=== PATIENT | male | born 1990 | race Caucasian/White ===

== ENCOUNTER 2018-10-02 09:36 | Emergency (ER) | payer OTHER ==
--- NOTE | 2018-10-02 10:43 | EDPHY ---
H & P Stated Complaint: back pain x3 yrs & anxiety Time Seen by Provider: 10/02/18 10:21 HPI/ROS: CHIEF COMPLAINT: Thoracic back pain x3 years "I want to make sure I don't have lung cancer" HISTORY OF PRESENT ILLNESS: 28-year-old male generally healthy, in the ER via private vehicle complaining of 3 years of left thoracic paraspinous pain approximately T4 level. Pain alleviated with direct pressure. He has been seen by a chiropractor with ambulation due to thoracic without manipulation to his cervical spine. He is concerned he may have lung cancer. He spoke with his uncle who was oncologist recommend he go to the ER to get an MRI of his chest. The patient has been seen by his primary care provider and is followed by at a chiropractor as well. He denies acute symptomatology. Does state that he had an 8 lb weight loss in 1 week without nausea or vomiting. PRIMARY CARE PROVIDER: REVIEW OF SYSTEMS: 10 systems reviewed and negative with the exception of the elements mentioned in the history of present illness PAST MEDICAL & SURGICAL HISTORY: No pertinent medical or surgical history SOCIAL HISTORY: Nonsmoker FAMILY HISTORY: no family history of long or other cancer PHYSICAL EXAM (Prior to examination, patient consented to physical exam, hands were washed and my usual and customary physical exam procedures followed) 1) GENERAL: Well-developed, well-nourished, alert and oriented. Appears to be in no acute distress. 2) HEAD: Normocephalic, atraumatic 3) HEENT: Pupils equal, round, reactive to light bilaterally. Sclera anicteric. Nasopharynx, oropharynx, clear, no lesions. Moist mucous membranes. Ears bilaterally with normal tympanic membranes. 4) NECK: Full range of motion, no meningeal signs. 5) LUNGS: Clear auscultation bilaterally, no wheezes, no rhonchi, no retractions. 6) HEART: Regular rate and rhythm, no murmur, no heave, no gallop. 7) ABDOMEN: No guarding, no rebound, no focal tenderness, negative McBurney's, negative Castillo's, negative Rovsing's, negative peritoneal sign, 8) MUSCULOSKELETAL: Moving all extremities, no focal areas of tenderness, no obvious trauma. No peripheral edema or discoloration. Negative Homans no palpable cord 9) BACK: Tender to palpation left thoracic paraspinous region approximately T4 level. No palpable lesions. No CVA tenderness, no midline vertebral tenderness , no fluctuance, no step-off, no obvious trauma, no visual or palpable abnormality. 10) SKIN: No rash, no petechiae. 11) Psychiatric: Patient is oriented X 3, there is no agitation. DIFFERENTIAL DIAGNOSIS: [In no particular order including but not limited to muscle strain, PE, spinal pathology, malignancy - Personal History Current Tetanus/Diphtheria Vaccine: Unsure Current Tetanus Diphtheria and Acellular Pertussis (TDAP): Unsure - Medical/Surgical History Hx Asthma: Yes Hx Chronic Respiratory Disease: No Hx Diabetes: No Hx Cardiac Disease: No Hx Renal Disease: No Hx Cirrhosis: No Hx Alcoholism: No Hx HIV/AIDS: No Hx Splenectomy or Spleen Trauma: No Other PMH: anxiety, asthma, chronic back pain - Social History Smoking Status: Never smoked Constitutional: Initial Vital Signs Temperature (C) 36.4 C 10/02/18 09:38 Heart Rate 91 10/02/18 09:38 Respiratory Rate 16 10/02/18 09:38 Blood Pressure 123/79 H 10/02/18 09:38 O2 Sat (%) 96 10/02/18 09:38 O2 Delivery Mode Room Air Allergies/Adverse Reactions: amoxicillin [From Augmentin] Allergy (Verified 10/02/18 09:41) clavulanic acid [From Augmentin] Allergy (Verified 10/02/18 09:41) Home Medications: Medication Instructions Recorded Cyclobenzaprine [Flexeril 10 MG 10 mg PO TID #15 tab 10/02/18 (RX)] Lidocaine [Lidoderm] 1 each TP BID #30 adh..patch 10/02/18 Medical Decision Making - Diagnostics Imaging Results: Imaging Impressions Chest X-Ray 10/02/18 10:36 Impression: Clear lungs. No acute process. Images reviewed myself ED Course/Re-evaluation: 10:40 a.m.: Patient states primary concern is that he may have lung cancer. I have agreed to perform a screening chest x-ray. We discussed the sensitivity this as well. He specifically requested an MRI of his chest which I do not think is emergently indicated. He does have primary care provider and I recommend that if he the in his primary care provider deem it necessary to perform more advanced imaging this may be performed on outpatient basis. Low pretest suspicion for pulmonary embolus combined with negative perc score. I do not think that D-dimer indicated. Doubt PE. In addition, no known history of connective tissue disorder or obvious physiological abnormality such as Marfan-esque body habitus 11:10 a.m.: I reviewed with the patient his imaging results interpreted by staff radiologist as negative. He appears visibly relieved upon reading the radiologist report noting no acute pathology on chest x-ray. At this time I do not think that further diagnostic studies are indicated. He has previous inquired about MRI of his chest I do not think is emergently indicated however he may discussed this further with his primary care provider. At this time I do not think that further diagnostic studies are indicated. He feels comfortable being discharged. Given usual and customary discharge precautions and instructions. I believe him to have decision-making capacity. Care of patient under supervision of secondary supervising physician Dr Omalley . Departure - Departure Disposition: Home, Routine, Self-Care Clinical Impression: Thoracic back pain Qualifiers: Chronicity: acute Back pain laterality: left Qualified Code(s): M54.6 - Pain in thoracic spine Condition: Good Instructions: Back Pain (ED) Additional Instructions: Return to the emergency department if you develop shortness of breath, numbness tingling or any other symptoms that concern you. Referrals: Monica Chua MD [Primary Care Provider] - 2-3 days, call for appt. Prescriptions: Cyclobenzaprine [Flexeril 10 MG (RX)] 10 mg PO TID #15 tab Lidocaine [Lidoderm] 1 each TP BID #30 adh..patch
[2018-10-02 11:55] VITALS: BP 143/85
== END 2018-10-02 11:55 | disposition home or self-care (01) ==
DX: M54.6 Pain in thoracic spine (principal)